=== PATIENT | male | born 2000 | race African-American/Black ===

== ENCOUNTER 2019-08-31 21:31 | Emergency (ER) | payer OTHER, SELFPAY ==
[2019-08-31 21:36] VITALS: BP 135/88; PULSE 131; RESP 18; TEMP 37.2; O2SAT 97
--- NOTE | 2019-08-31 22:07 | ED.PSYCH ---
HPI - Psych General Chief Complaint: Psychiatric Symptoms <Kash Lee MD - Last Filed: 09/04/19 18:51> Stated Complaint: SI <Kash Lee MD - Last Filed: 09/04/19 18:51> Time Seen by Provider: 08/31/19 21:56 <Kash Lee MD - Last Filed: 09/04/19 18:51> History of Present Illness HPI Narrative: Policed called to his house because he was found trying to hang himself. He admits to try to kill himself. It sounds as though this is not the first time. History limited by alcohol intoxication <Kash Lee MD - Last Filed: 09/04/19 18:51> Related Data Allergies/Adverse Reactions: Allergies Allergy/AdvReac Type Severity Reaction Status Date / Time SEASONAL ALLERGENS AdvReac Unknown UNKNOWN Uncoded 07/25/17 16:12 <Kash Lee MD - Last Filed: 09/04/19 18:51> Review of Systems Review of Systems: ROS unobtainable: Yes other (intoxication) <Kash Lee MD - Last Filed: 09/04/19 18:51> Psychiatric: Psychiatric: Reports suicidal ideation <Kash Lee MD - Last Filed: 09/04/19 18:51> Exam Const: General: healthy appearing, no acute distress and alert <Kash Lee MD - Last Filed: 09/04/19 18:51> Nutritional Appearance: well nourished <Kash Lee MD - Last Filed: 09/04/19 18:51> Orientation/consciousness: patient oriented x3 <Kash Lee MD - Last Filed: 09/04/19 18:51> HENMT: Head: normal to inspection <Kash Lee MD - Last Filed: 09/04/19 18:51> Eyes: Pupils: Equal, round and reactive pupils present <Kash Lee MD - Last Filed: 09/04/19 18:51> Resp: Effort & Inspection: normal respiratory effort <Kash Lee MD - Last Filed: 09/04/19 18:51> Auscultation: clear to auscultation bilaterally <Kash Lee MD - Last Filed: 09/04/19 18:51> Cardio: Rate: tachycardic <Kash Lee MD - Last Filed: 09/04/19 18:51> Rhythm: regular rhythm <Kash Lee MD - Last Filed: 09/04/19 18:51> Skin: General skin exam: normal color <Kash Lee MD - Last Filed: 09/04/19 18:51> Neuro: General: moves all extremities and no focal motor deficits <Kash Lee MD - Last Filed: 09/04/19 18:51> Speech: Abnormal speech present slurred <Kash Lee MD - Last Filed: 09/04/19 18:51> Extrem: General: normal to inspection <Kash Lee MD - Last Filed: 09/04/19 18:51> Psych: Thought content: Yes Suicidality present <Kash Lee MD - Last Filed: 09/04/19 18:51> Course Course Emergency Course: Care turned over to myself at shift change. Seen and evaluated myself agree with initial H&P patient does states that he has daily suicidal ideation Patient evaluated by Mallika from [facility]. It is felt that the patient does require inpatient treatment to she is filled out at this time and will see placement for patient Patient accepted at [facility] by Dr. Alvarez <Jenaro Conway DO - Last Filed: 09/01/19 15:54> Vital Signs Vital signs: Vital Signs Temperature 37.2 C 08/31/19 21:36 Pulse Rate 131 H 08/31/19 21:36 Respiratory Rate 18 08/31/19 21:36 Blood Pressure 135/88 08/31/19 21:36 Pulse Oximetry 97 08/31/19 21:36 Temperature 37.2 C 08/31/19 21:36 Pulse Rate 94 09/01/19 14:09 Respiratory Rate 18 09/01/19 14:09 Blood Pressure 118/60 09/01/19 14:09 Pulse Oximetry 99 09/01/19 14:09 <Kash Lee MD - Last Filed: 09/04/19 18:51> Vital Signs Temperature 37.2 C 08/31/19 21:36 Pulse Rate 131 H 08/31/19 21:36 Respiratory Rate 18 08/31/19 21:36 Blood Pressure 135/88 08/31/19 21:36 Pulse Oximetry 97 08/31/19 21:36 Temperature 37.2 C 08/31/19 21:36 Pulse Rate 94 09/01/19 14:09 Respiratory Rate 18 09/01/19 14:09 Blood Pressure 118/60 09/01/19 14:09 Pulse Oximetry 99 09/01/19 14:09 <Jenaro Conway, DO - Last Filed: 09/01/19 15:54>
[2019-08-31 22:08] LABS: Basophils Absolute Auto 0.1 K/mm3 (0.0-0.1); Eosinophils Absolute Auto 0.1 K/mm3 (0-0.3); Eosinophils Percent Auto 1.6 % (0-4.4); Hematocrit 47.8 % (42.0-52.0); Hemoglobin 16.7 g/dL (14.0-18.0); Immature Granulocyte Absolute 0.02 K/mm3 (0.00-0.031); Immature Granulocyte Percent A 0.2 % (0-0.5); Lymphocytes Absolute Auto 3.37 K/mm3 (0.9-3.2); Mean Corpuscular HGB Conc 34.9 g/dl (32-36); Mean Corpuscular Hemoglobin 31.5 pg (26-34); Mean Platelet Volume 11.3 fl (7.4-10.4); Monocytes Absolute Auto 0.6 K/mm3 (0.1-0.6); Monocytes Percent Auto 7.2 % (2.6-8.5); Neutrophils Absolute Auto 3.8 K/mm3 (1.3-6.7); Platelet Count Result 290 k/mm3 (150-375); Red Blood Count 5.31 M/mm3 (4.6-6.20); Red Cell Distribution Width 11.8 % (11.5-14.5)
[2019-08-31 22:21] LABS: Alanine Aminotransferase 16 U/L (4-50); Albumin Level 5.1 g/dL (3.5-5.1); Alkaline Phosphatase 57 U/L (38-126); Aspartate Amino Transferase 37 U/L (17-59); Bilirubin,Total 0.4 mg/dL (0.2-1.3); Blood Urea Nitrogen 10 mg/dL (9-20); Calcium 8.9 mg/dL (8.4-10.2); Carbon Dioxide 24 mmol/L (22-30); Chloride 104 mmol/L (98-107); Estimated Glomerular Filt Rate > 60; Glucose 99 mg/dL (75-110); Potassium 3.8 mmol/L (3.4-5.0); Sodium 141 mmol/L (137-145)
[2019-08-31 22:22] LABS: Ethanol 215 mg/dL (<10)
--- NOTE | 2019-08-31 22:44 | PC.NURSE ---
Patient stating I'm gonna leave, I don't want to be here so it's ok. Patient states he wants water to drink. Patient informed he needs to stay in to room and I will ask to doctor for some water. Patient states he will give a urine sample.
--- NOTE | 2019-08-31 22:52 | PC.NURSE ---
Patient repeatedly attempting to leave room, ED security called to room. Security speaking with patient.
--- NOTE | 2019-08-31 23:00 | PC.NURSE ---
2300 Assumed care of pt at this time. report from Ernestina, RN
[2019-08-31 23:01] LABS: Add Urine Microscopic? YES; Appearance Urine Clear (Clear); Bilirubin Urine Negative (Negative); Blood Urine 1+ (Negative); Color Urine Yellow (Yellow); Glucose Urine UA Negative (Negative); Ketones Urine Trace mg/dL (Negative); Leukocyte Esterase Ur Negative LEU/UL (Negative); Mucus Urine Rare /lpf; Nitrate Urine Negative (Negative); Protein Urine 1+ mg/dL (Negative); RBC Urine 0-2 /hpf (0-2); Specific Grav Ur 1.017 (1.001-1.035); Squamous Epithelial Cell Urine Rare /hpf (Few); Urobilinogen Urine Negative mg/dL (<2.0); WBC Urine 0-3 /hpf
--- NOTE | 2019-08-31 23:24 | PC.NURSE ---
Patient report given to BEKAH Pack.
[2019-08-31 23:28] LABS: Amphetamine Screen Urine Negative (Negative); Barbiturate Screen Urine Negative (Negative); Benzodiazepines Screen Urine Negative (Negative); Cannabinoid Screen Urine Negative (Negative); Cocaine Screen Urine Negative (Negative); Methadone Screen Urine Negative (Negative); Opiate Screen Urine Negative (Negative); Phencyclidine Screen Urine Negative (Negative)
--- NOTE | 2019-09-01 00:03 | PC.NURSE ---
Spoke with grandmother, Kim Garcia. She wanted the code to his phone so she could call his employer and let them know he is in the hospital. Told her he was resting/sleeping at this time and we did not want to disturb him. She agreed and will try another way to contact his employer.
[2019-09-01 00:15] VITALS: BP 117/64; PULSE 97; RESP 16; O2SAT 94
[2019-09-01 03:26] VITALS: BP 111/49; PULSE 86; RESP 18; O2SAT 95
--- NOTE | 2019-09-01 04:37 | PC.NURSE ---
spoke w/ pt's grandparent. updated patient of pt status.
[2019-09-01 05:38] VITALS: BP 114/58; PULSE 105; RESP 14; O2SAT 95
[2019-09-01 06:25] LABS: Ethanol 79 mg/dL (<10)
--- NOTE | 2019-09-01 06:32 | PC.NURSE ---
Spoke w/ Jacquelyn at crisis. Mallika does not get on shift until 0700 she will be here around 0800.
--- NOTE | 2019-09-01 06:33 | PC.NURSE ---
Pt moved to RM 15. Sitter at bedside
--- NOTE | 2019-09-01 07:27 | PC.NURSE ---
Sleeping on stretcher. Sitter at bedside. Awaiting crisis to evaluate.
--- NOTE | 2019-09-01 08:58 | PC.NURSE ---
Chart faxed to [facility]. Face sheet faxed to [facility].
--- NOTE | 2019-09-01 08:59 | PC.NURSE ---
Declined a meal at present.
--- NOTE | 2019-09-01 09:28 | PC.NURSE ---
Confirmed with [facility], they received faxed chart. [facility] called and does not have a bed available.
--- NOTE | 2019-09-01 10:39 | PC.NURSE ---
Additional forms faxed to [facility].
[2019-09-01] MEDS: NICOTINE (*PBKC) 21 MG PATCH 1 PATCH TRANSDERM (10:56)
--- NOTE | 2019-09-01 10:56 | PC.NURSE ---
Chart faxed to [facility].
[2019-09-01 14:09] VITALS: BP 118/60; PULSE 94; RESP 18; O2SAT 99
--- NOTE | 2019-09-01 15:53 | PC.NURSE ---
nurse to nurse report given to Laquita Latham RN at [facility]
== END 2019-09-01 15:58 ==
PROVIDERS: Emergency Medicine; Emergency Provider Emergency Medicine; PCP Family Medicine
DX: R45.851 Suicidal ideations (principal)
CPT/HCPCS: 36415; 80053; 80307; 81001; 84443; 85025; 99285; A9270

== ENCOUNTER 2020-01-27 07:44 | Emergency (ER) | payer OTHER, SELFPAY ==
[2020-01-27] VITALS (15 sets, daily range): BP systolic 103–146; BP diastolic 66–88; PULSE 76–99; RESP 16–18; TEMP 36.8; O2SAT 99–100
--- NOTE | ~2020-01-27 | CT_ITS ---
EXAMINATION: CT abdomen pelvis w con DATE: 01/27/2020 08:41 INDICATION: Right lower quadrant pain TECHNIQUE: Computed tomography (CT) of the abdomen and pelvis was performed with 100 cc Omnipaque 350 intravenous contrast. The dose-length product was 303.38 mGy-cm. Automated exposure control and iter ative reconstruction technique were employed. COMPARISON: None. FINDINGS: Lung bases are unremarkable. No significant pleural or pericardial effusion. Heart size nor mal. The liver, spleen, pancreas, and adrenal glands and kidneys are unremarkable. Gallbladder is present. The appendix is within normal limits. No periappendiceal inflammation. Trace free fluid in the pelvi s, nonspecific. Nonobstructive bowel gas pattern. No free air. Gallbladder is present. No acute osseous abnormality. IMPRESSION: 1. No acute abdominal abnormality. No findings to account for patient's symptoms. Reviewed, dictated and finalized at location B. IMPRESSION: 1. No acute abdominal abnormality. No findings to account for patient's symptom s.
--- NOTE | 2020-01-27 08:03 | ED.ABDPAIN ---
HPI - Abdominal Pain General Chief Complaint: Abdominal Pain Stated Complaint: abd pain, gastritis hx Time Seen by Provider: 01/27/20 07:49 History of Present Illness HPI narrative: Patient is a 19-year-old male who presents ER with abdominal pain. Symptoms began earlier this morning. Diffuse abdominal cramping that is sharp. Last for a few minutes at a time, able to go away briefly and return. No aggravating or alleviating factors that he is noted. Denies nausea/vomiting/diarrhea. No known sick contacts. Denies urinary symptoms. Reports pain refers into his back but has no overt back pain. Related Data Home Medications Medication Instructions Recorded Confirmed bupropion HCl PO DAILY 01/27/20 sertraline mg DAILY 01/27/20 Allergies Allergy/AdvReac Type Severity Reaction Status Date / Time No Known Allergies Allergy Verified 01/27/20 07:53 Review of Systems Review of Systems: All systems reviewed & are unremarkable except as noted in HPI and below Constitutional: Constitutional: Denies chills, Denies fever(s) and Denies weakness Gastrointestinal: Gastrointestinal: Reports abdominal pain, Denies diarrhea, Denies nausea and Denies vomiting Genitourinary: Genitourinary: Denies hematuria, Denies dysuria and Denies urinary frequency PMFSH Past Medical History Medical History (Updated 01/27/20 @ 09:40 by Jovon Mcallister MD) Healthy adult male Surgical History Surgical History (Updated 01/27/20 @ 08:10 by Jovon Mcallister MD) No history of previous surgery Social History Social History (Updated 01/27/20 @ 08:10 by Jovon Mcallister MD) Smoking status: Current every day smoker Alcohol use details: Occasional EtOH Exam Narrative: Exam Narrative: GENERAL: Well-appearing, well-nourished, and in no acute distress. HEAD: Normocephalic, atraumatic. CHEST: Clear to auscultation. No respiratory distress. HEART: Regular rate and rhythm. Normal peripheral pulses. ABDOMEN: Soft, mild tenderness right lower quadrant with guarding, additional mild tenderness right upper quadrant without guarding, nondistended, normal active bowel sounds. EXTREMITIES: Normal range of motion. No edema. SKIN: Warm, dry, no rash. NEURO: Alert and oriented x3. PSYCH: Normal mood and affect. Course Course Emergency Course: Unremarkable evaluation. Discharge home. Vital Signs Vital signs: Vital Signs Pulse Oximetry 99 01/27/20 07:50 Temperature 98.2 F 01/27/20 07:54 Pulse Rate 76 01/27/20 07:54 Respiratory Rate 18 01/27/20 07:54 Blood Pressure 103/73 01/27/20 08:01 Pulse Oximetry 99 01/27/20 08:01 MDM - Abdominal Pain Lab Data Result diagrams: 01/27/20 08:11 01/27/20 08:11 Labs: Lab Results 01/27/20 01/27/20 01/27/20 Range/Units 08:11 08:11 09:00 WBC 8.3 (4.5-10.0) K/mm3 RBC 4.78 (4.6-6.20) M/mm3 Hgb 15.3 (14.0-18.0) g/dL Hct 42.5 (42.0-52.0) % MCV 88.9 (80-100) fl MCH 32.0 (26-34) pg MCHC 36.0 (32-36) g/dl RDW 10.7 L (11.5-14.5) % Plt Count 228 (150-375) k/mm3 MPV 11.0 H (7.4-10.4) fl Immature Gran % (Auto) 0.5 (0-0.5) % Neut % (Auto) 75.8 H (45.5-73.1) % Lymph % (Auto) 14.6 L (18.3-44.2) % [place] % (Auto) 6.8 (2.6-8.5) % Eos % (Auto) 1.6 (0-4.4) % Baso % (Auto) 0.7 (0.2-1.2) % Lymph # (Auto) 1.21 (0.9-3.2) K/mm3 [place] # (Auto) 0.6 (0.1-0.6) K/mm3 Eos # (Auto) 0.1 (0-0.3) K/mm3 Baso # (Auto) 0.1 (0.0-0.1) K/mm3 Abs Immat Gran (auto) 0.04 H (0.00-0.031) K/mm3 Absolute Neuts (auto) 6.3 (1.3-6.7) K/mm3 Absolute Nucleated RBC 0.0 (0.0-0.012) K/mm3 Nucleated RBC % 0.0 (0.0-0.2) % Sodium 140 (137-145) mmol/L Potassium 3.7 (3.4-5.0) mmol/L Chloride 102 (98-107) mmol/L Carbon Dioxide 28 (22-30) mmol/L Anion Gap 10 (8-16) mmol/L BUN 16 (9-20) mg/dL Creatinine 1.20 (0.7-1.3) mg/dL Estim Creat
--- NOTE | 2020-01-27 08:15 | PC.NURSE ---
patient here with abdomen pain. see triage notes. alert. oriented. denies known fever at home. assessments documented.
[2020-01-27 08:17] LABS: Basophils Absolute Auto 0.1 K/mm3 (0.0-0.1); Basophils Percent Auto 0.7 % (0.2-1.2); Eosinophils Absolute Auto 0.1 K/mm3 (0-0.3); Eosinophils Percent Auto 1.6 % (0-4.4); Hematocrit 42.5 % (42.0-52.0); Hemoglobin 15.3 g/dL (14.0-18.0); Immature Granulocyte Absolute 0.04 K/mm3 (0.00-0.031); Immature Granulocyte Percent A 0.5 % (0-0.5); Lymphocytes Absolute Auto 1.21 K/mm3 (0.9-3.2); Lymphocytes Percent Auto 14.6 % (18.3-44.2); Mean Corpuscular Volume 88.9 fl (80-100); Monocytes Absolute Auto 0.6 K/mm3 (0.1-0.6); Monocytes Percent Auto 6.8 % (2.6-8.5); Neutrophils Absolute Auto 6.3 K/mm3 (1.3-6.7); Neutrophils Percent Auto 75.8 % (45.5-73.1); Platelet Count Result 228 k/mm3 (150-375); Red Blood Count 4.78 M/mm3 (4.6-6.20); Red Cell Distribution Width 10.7 % (11.5-14.5); White Blood Count 8.3 K/mm3 (4.5-10.0)
--- NOTE | 2020-01-27 08:19 | PC.NURSE ---
patient reminded that we will wait a urine specimen. states he does not need to void right now.
[2020-01-27 08:28] LABS: Alanine Aminotransferase 19 U/L (4-50); Albumin Level 4.7 g/dL (3.5-5.1); Alkaline Phosphatase 42 U/L (38-126); Anion Gap 10 mmol/L (8-16); Aspartate Amino Transferase 22 U/L (17-59); Bilirubin,Total 0.8 mg/dL (0.2-1.3); Blood Urea Nitrogen 16 mg/dL (9-20); Calcium 9.4 mg/dL (8.4-10.2); Carbon Dioxide 28 mmol/L (22-30); Chloride 102 mmol/L (98-107); Estimated CRCL calculation 79 ml/min; Estimated Glomerular Filt Rate > 60; Glucose 96 mg/dL (75-110); Lipase 20 U/L (23-300); Potassium 3.7 mmol/L (3.4-5.0); Sodium 140 mmol/L (137-145)
--- NOTE | 2020-01-27 08:48 | PC.NURSE ---
back from CT.
--- NOTE | 2020-01-27 08:54 | PC.NURSE ---
patient assisted to get out of bed. given urinal.
--- NOTE | 2020-01-27 09:01 | PC.NURSE ---
urine specimen collected.
[2020-01-27 09:10] LABS: Add Urine Microscopic? NO; Appearance Urine Clear (Clear); Bacteria Urine Trace /hpf; Bilirubin Urine Negative (Negative); Blood Urine Negative (Negative); Color Urine Yellow (Yellow); Glucose Urine UA Negative (Negative); Ketones Urine Negative (Negative); Leukocyte Esterase Ur Negative LEU/UL (Negative); Mucus Urine Rare /lpf; Nitrate Urine Negative (Negative); Protein Urine Negative (Negative); RBC Urine 0-2 /hpf (0-2); Urobilinogen Urine Negative mg/dL (<2.0); WBC Urine 0-3 /hpf
[2020-01-27 09:12] LABS: Specific Grav Ur 1.049 (1.001-1.035)
== END 2020-01-27 10:00 | disposition home or self-care (01) ==
PROVIDERS: Emergency Provider Emergency Medicine; PCP Family Medicine
DX: R10.9 Unspecified abdominal pain (principal); F17.200 Nicotine dependence, unspecified, uncomplicated
CPT/HCPCS: 36415; 74177; 80053; 81003; 83690; 85025; 99284; Q9967

== ENCOUNTER 2020-06-23 02:05 | Emergency (ER) | payer OTHER, SELFPAY ==
[2020-06-23 02:09] VITALS: BP 134/84; PULSE 95; RESP 16; TEMP 37; O2SAT 99
--- NOTE | 2020-06-23 02:18 | ECG_ITS ---
Measurements Intervals [place] Rate: 80 P: 50 UT: 174 QRS: -15 QRSD: 100 T: 28 QT: 369 QTc: 426 Interpretive Statements SINUS RHYTHM WITH SINUS ARRHYTHMIA DELAYED PRECORDIAL R/S TRANSITION BORDERLINE T WAVE ABNORMALITY- LATERAL LEADS BASELINE WANDER- V4-V6 BORDERLINE ECG Electronically Signed On 06-23-2020 7:19:39 CDT by Hernandez Torres D.O.
[2020-06-23 02:42] LABS: Basophils Absolute Auto 0.1 K/mm3 (0.0-0.1); Basophils Percent Auto 0.7 % (0.2-1.2); Eosinophils Absolute Auto 0.1 K/mm3 (0-0.3); Hematocrit 43.9 % (42.0-52.0); Hemoglobin 15.7 g/dL (14.0-18.0); Immature Granulocyte Absolute 0.03 K/mm3 (0.00-0.031); Immature Granulocyte Percent A 0.4 % (0-0.5); Lymphocytes Absolute Auto 3.32 K/mm3 (0.9-3.2); Lymphocytes Percent Auto 46.7 % (18.3-44.2); Mean Corpuscular HGB Conc 35.8 g/dl (32-36); Mean Corpuscular Hemoglobin 31.5 pg (26-34); Monocytes Absolute Auto 0.4 K/mm3 (0.1-0.6); Monocytes Percent Auto 5.5 % (2.6-8.5); Neutrophils Absolute Auto 3.3 K/mm3 (1.3-6.7); Neutrophils Percent Auto 45.7 % (45.5-73.1); Platelet Count Result 287 k/mm3 (150-375); Red Blood Count 4.99 M/mm3 (4.6-6.20); White Blood Count 7.1 K/mm3 (4.5-10.0)
--- NOTE | 2020-06-23 02:50 | ED.GENADULT ---
HPI - General Adult General Chief complaint: Psychiatric Symptoms Stated complaint: break down Time Seen by Provider: 06/23/20 02:07 History of Present Illness HPI narrative: Patient is a 20-year-old gentleman who presents the emergency department with chief complaint of anxiety and suicidal ideation. Patient states that he has been under stress lately because he ran out of his Wellbutrin and has been unable to get his doctor to refill it. Patient states that he is becoming more more stressed and reports that he is having thoughts of harming himself. Patient states that he does not have a defined plan and states that these feelings come and go. The patient reports that tonight he was drinking and started having some of these thoughts again. The patient states at this time he is not feeling them as much as he was. The patient reports that he really just needs his Wellbutrin Related Data Home Medications Medication Instructions Recorded Confirmed bupropion HCl PO DAILY 01/27/20 sertraline mg DAILY 01/27/20 Allergies Allergy/AdvReac Type Severity Reaction Status Date / Time No Known Allergies Allergy Verified 01/27/20 07:53 Review of Systems Review of Systems: Narrative: A 10 system review of systems was completed on the patient and is negative except for what is stated in the HPI. Nursing and ancillary documentation was reviewed. PMFSH Past Medical History Medical History Healthy adult male Surgical History Surgical History No history of previous surgery Social History Social History Smoking status: Current every day smoker Exam Narrative: Exam Narrative: GENERAL: Well-appearing, well-nourished, and in no acute distress. HEAD: Normocephalic, atraumatic. EYES: PERRLA and EOMI. ENT: Nares clear, no rhinorrhea or epistaxis. Mucous membranes moist. NECK: Supple. CHEST: Clear to auscultation. No respiratory distress. HEART: Regular rate and rhythm. No murmur heard. Normal peripheral pulses. ABDOMEN: Soft, nontender, nondistended, normal active bowel sounds. EXTREMITIES: Normal range of motion. No edema. SKIN: Warm, dry, no rash. NEURO: No focal deficits. Alert and oriented x3. PSYCH: Normal mood and affect. Course Vital Signs Vital signs: Vital Signs Temperature 37.0 C 06/23/20 02:09 Pulse Rate 95 06/23/20 02:09 Respiratory Rate 16 06/23/20 02:09 Blood Pressure 134/84 06/23/20 02:09 Pulse Oximetry 99 06/23/20 02:09 Temperature 37.0 C 06/23/20 02:09 Pulse Rate 95 06/23/20 02:09 Respiratory Rate 16 06/23/20 02:09 Blood Pressure 134/84 06/23/20 02:09 Pulse Oximetry 99 06/23/20 02:09 Medical Decision Making Vital Signs Vital Signs: Vital Signs Temperature 37.0 C 06/23/20 02:09 Pulse Rate 95 06/23/20 02:09 Respiratory Rate 16 06/23/20 02:09 Blood Pressure 134/84 06/23/20 02:09 Pulse Oximetry 99 06/23/20 02:09 Temperature 37.0 C 06/23/20 02:09 Pulse Rate 95 06/23/20 02:09 Respiratory Rate 16 06/23/20 02:09 Blood Pressure 134/84 06/23/20 02:09 Pulse Oximetry 99 06/23/20 02:09 Lab Data Result diagrams: 06/23/20 02:30 06/23/20 02:30 Labs: Lab Results 06/23/20 06/23/20 06/23/20 Range/Units 02:30 02:30 02:30 WBC 7.1 (4.5-10.0) K/mm3 RBC 4.99 (4.6-6.20) M/mm3 Hgb 15.7 (14.0-18.0) g/dL Hct 43.9 (42.0-52.0) % MCV 88.0 (80-100) fl MCH 31.5 (26-34) pg MCHC 35.8 (32-36) g/dl RDW 11.0 L (11.5-14.5) % Plt Count 287 (150-375) k/mm3 MPV 11.0 H (7.4-10.4) fl Immature Gran % (Auto) 0.4 (0-0.5) % Neut % (Auto) 45.7 (45.5-73.1) % Lymph % (Auto) 46.7 H (18.3-44.2) % [place] % (Auto) 5.5 (2.6-8.5) % Eos % (Auto) 1.0 (0-4.4) % Baso % (Au
[2020-06-23 02:53] LABS: Alanine Aminotransferase 28 U/L (4-50); Albumin Level 4.9 g/dL (3.5-5.1); Alkaline Phosphatase 41 U/L (38-126); Anion Gap 13 mmol/L (8-16); Aspartate Amino Transferase 26 U/L (17-59); Bilirubin,Total 0.2 mg/dL (0.2-1.3); Blood Urea Nitrogen 10 mg/dL (9-20); Carbon Dioxide 26 mmol/L (22-30); Chloride 105 mmol/L (98-107); Estimated CRCL calculation 85 ml/min; Estimated Glomerular Filt Rate > 60; Glucose 99 mg/dL (75-110); Potassium 3.7 mmol/L (3.4-5.0); Sodium 144 mmol/L (137-145)
[2020-06-23 03:04] LABS: Acetaminophen < 10 ug/mL (10-30); Ethanol 171 mg/dL (<10); Salicylate < 1.0 mg/dL (2-20)
[2020-06-23 03:07] LABS: Amphetamine Screen Urine Negative (Negative); Barbiturate Screen Urine Negative (Negative); Benzodiazepines Screen Urine Negative (Negative); Cannabinoid Screen Urine Negative (Negative); Cocaine Screen Urine Negative (Negative); Methadone Screen Urine Negative (Negative); Opiate Screen Urine Negative (Negative); Phencyclidine Screen Urine Negative (Negative)
[2020-06-23 03:16] LABS: Add Urine Microscopic? NO; Appearance Urine Clear (Clear); Bilirubin Urine Negative (Negative); Blood Urine Negative (Negative); Color Urine Yellow (Yellow); Glucose Urine UA Negative (Negative); Ketones Urine Negative (Negative); Leukocyte Esterase Ur Negative LEU/UL (Negative); Nitrate Urine Negative (Negative); Protein Urine Negative (Negative); Specific Grav Ur 1.015 (1.001-1.035); Urobilinogen Urine Negative mg/dL (<2.0)
[2020-06-23 06:58] LABS: Ethanol 115 mg/dL (<10)
--- NOTE | 2020-06-23 07:32 | PC.NURSE ---
Assumed care of pt, pt is resting on stretcher - alert to verbal stimuli. Discussed POC. Pt denies SI at this time. Sitter remains at bedside. Breakfast tray ordered for pt.
[2020-06-23 08:06] VITALS: BP 98/48; PULSE 82; RESP 17; O2SAT 97
--- NOTE | 2020-06-23 08:26 | PC.NURSE ---
Per Low Risk reassessment evaluation on Edgar scale, discussed with dry charge process attendant Kiah and had sitter removed from bedside. Pt remains calm, resting on stretcher, lights dimmed. Discussed POC.
[2020-06-23 09:14] LABS: Ethanol 77 mg/dL (<10)
--- NOTE | 2020-06-23 09:25 | PC.NURSE ---
Per Dr Mcallister, pt is medically cleared at this time. Crisis was contacted, spoke to Mallika - will be out shortly for pt eval.
--- NOTE | 2020-06-23 10:42 | PC.NURSE ---
Called and spoke to Kim Garcia (pt grandmother) [phone] and gave update on pt status.
[2020-06-23 11:42] VITALS: BP 131/80; PULSE 76; RESP 16; O2SAT 100
[2020-06-23 12:28] VITALS: BP 131/80; PULSE 76; RESP 15; O2SAT 100
== END 2020-06-23 12:29 | disposition home or self-care (01) ==
PROVIDERS: Emergency Medicine; Emergency Provider Emergency Medicine; PCP Family Medicine
DX: F32.9 Major depressive disorder, single episode, unspecified (principal); F10.129 Alcohol abuse with intoxication, unspecified; Y90.6 Blood alcohol level of 120-199 mg/100 ml; R94.31 Abnormal electrocardiogram [ECG] [EKG]
CPT/HCPCS: 36415; 80053; 80307; 81003; 84443; 85025; 93005; 99284

== ENCOUNTER 2022-11-14 13:41 | Emergency (ER) | payer OTHER, SELFPAY ==
[2022-11-14 13:42] VITALS: BP 142/87; PULSE 82; RESP 16; TEMP 36.8; O2SAT 99
--- NOTE | 2022-11-14 14:38 | ED.DENTAL ---
HPI - Dental/Oral General Chief complaint: Dental/Oral Stated complaint: L jaw pain, swollen lymphnodes Time Seen by Provider: 11/14/22 14:13 Source: patient Mode of arrival: ambulatory Limitations: no limitations History of Present Illness HPI Narrative: Patient is a 22-year-old male who presents ED with report of left lower posterior dental and jaw pain. Patient reports having intermittent pain over the last 1 week. He states the pain feels to be where his left lower wisdom tooth is. He has noticed some gum swelling in the region and swelling to his left-sided outer jaw. Denies any drainage from the tooth. He has been taking ibuprofen for the pain without much relief. He also feels like one of his lymph nodes on his left sided neck is enlarged. Denies any fever, difficulty swallowing or breathing, vomiting. Patient has not tried to get into see a dentist yet. Related Data Home Medications Medication Instructions Recorded Confirmed bupropion HCl 100 mg tablet PO DAILY 01/27/20 sertraline 50 mg tablet mg DAILY 01/27/20 Allergies Allergy/AdvReac Type Severity Reaction Status Date / Time No Known Allergies Allergy Verified 11/14/22 13:55 Review of Systems Review of Systems: CONSTITUTIONAL: Denies fever, chills, or sweats. ENT: See HPI. CARDIOVASCULAR: Denies chest pain. RESPIRATORY: Denies dyspnea. GASTROINTESTINAL: Denies abdominal pain, nausea, vomiting. All systems reviewed & are unremarkable except as noted in HPI and below PMFSH Past Medical History Medical History Healthy adult male Surgical History Surgical History No history of previous surgery Social History Social History Smoking status: Current every day smoker Alcohol use details: Occasional EtOH Exam Narrative: GENERAL: Well appearing, well-nourished, non-toxic, in no acute distress. HEAD: Normocephalic, atraumatic. ENT: Mucous membranes moist. Lip ring to left lower lip. No stridor or trismus. Left lower posterior molar with surrounding gum inflammation, erythema, tenderness - reproducing reported discomfort. No focal abscess or fluctuance. No significant posterior pharynx erythema. Uvula midline. No appreciable submandibular swelling. No swelling or tenderness noted to palate. NECK: Supple. No significant palpable anterior cervical lymphadenopathy, no masses. RESPIRATORY: Airway patent, respirations nonlabored. Clear to auscultation bilaterally, no rales, rhonchi, wheezing. CARDIOVASCULAR: Regular rate and rhythm without murmurs, rubs, or gallops. Radial pulses 2+ and equal bilaterally. MUSCULOSKELETAL: Moves all extremities. Strength/ROM intact without gross deformities. SKIN: Warm, dry, normal color. No rashes. NEURO: A&O X3. Speech clear. Cranial nerves II-XII grossly intact. Steady gait. No ataxic movements. PSYCHIATRIC: Appropriate mood and affect. Normal interaction. Course Vital Signs Vital signs: Vital Signs Temperature 98.2 F 11/14/22 13:42 Pulse Rate 82 11/14/22 13:42 Respiratory Rate 16 11/14/22 13:42 Blood Pressure 142/87 H 11/14/22 13:42 Pulse Oximetry 99 11/14/22 13:42 Oxygen Delivery Room Air 11/14/22 13:42 Temperature 98.2 F 11/14/22 13:42 Pulse Rate 82 11/14/22 13:42 Respiratory Rate 16 11/14/22 13:42 Blood Pressure 142/87 H 11/14/22 13:42 Pulse Oximetry 99 11/14/22 13:42 Oxygen Delivery Room Air 11/14/22 13:42 MDM - Dental/Oral MDM Narrative Medical decision making narrative: Patient's pain is consistent with dental/gum infection. There are no focal signs of space-occupying abscess. The patient is controlling secretions well without signs of airway compromise. No stridor or trismus. No evidence for parotiditis, Andrzej's angina. Patient is felt reasonable for outpa
[2022-11-14] MEDS: AMOXICILLIN/CLAVULANATE K 875-125 MG TAB 1 TABLET PO (14:45)
[2022-11-14] MEDS: ACETAMINOPHEN 500 MG TABLET 1000 MG PO (14:45)
== END 2022-11-14 15:16 | disposition home or self-care (01) ==
PROVIDERS: Emergency Provider Physician Assistant
DX: K04.7 Periapical abscess without sinus (principal); F17.200 Nicotine dependence, unspecified, uncomplicated
CPT/HCPCS: 99283; A9270

== ENCOUNTER 2023-04-23 04:23 | Emergency (ER) | payer OTHER, SELFPAY ==
--- NOTE | ~2023-04-23 | XR_ITS ---
Portable chest x-ray Comparison: 09/26/2018 Clinical History: Chest pain Findings: Lungs are clear, without focal consolidation or pleural effusion. Cardiomediastinal silho uette is stable. Bones and soft tissues are unremarkable. Impression: Normal chest. Reviewed, dictated and finalized at [facility]. ON SITE Impression: Normal chest.
[2023-04-23 04:39] VITALS: BP 139/92; PULSE 61; RESP 19; TEMP 36.8; O2SAT 100
[2023-04-23 04:41] VITALS: PULSE 64
--- NOTE | 2023-04-23 05:01 | ECG_ITS ---
Measurements Intervals [place] Rate: 65 P: 38 TX: 181 QRS: -4 QRSD: 105 T: 29 QT: 376 QTc: 393 Interpretive Statements SINUS RHYTHM NONSPECIFIC T-WAVE ABNORMALITY- ANTEROLATERAL LEADS BASELINE ARTIFACT- I, II, III, AVL, AVF, V3, V6 BORDERLINE ECG COMPARED TO ECG 06/23/2020 02:40:59 NO SIGNIFICANT CHANGES Electronically Signed On 04-23-2023 6:41:59 [employer] by Hernandez Torres D.O.
[2023-04-23] MEDS: MAG HYDROX/AL HYDROX/SIMETH 30 ML UDC PO (05:12)
[2023-04-23] MEDS: FAMOTIDINE 20 MG TABLET PO (05:12)
[2023-04-23 05:30] VITALS: BP 134/83; PULSE 62; RESP 18; O2SAT 98
--- NOTE | 2023-04-23 05:33 | ED.GENADULT ---
HPI - General Adult General Chief complaint: Unspecified Stated complaint: Chest pain Time Seen by Provider: 04/23/23 04:28 History of Present Illness HPI narrative: this is a 23-year-old male with history of gastritis and anxiety presenting with chest pain. Patient says that for the last 20 every night when he goes to bed he developed a pain the left side his chest. the pain and actually resolved and has no pain during the day. He is currently asymptomatic. He noted that went for symptoms associated with significant anxiety. Now he feels he becomes anxious when the pain starts because he feels like he may not be able to sleep. Patient started a new job exactly 1 week ago. Patient denies fever chills URI symptoms Related Data Home Medications Medication Instructions Recorded Confirmed bupropion HCl 100 mg tablet PO DAILY 01/27/20 sertraline 50 mg tablet mg DAILY 01/27/20 Allergies Allergy/AdvReac Type Severity Reaction Status Date / Time No Known Allergies Allergy Verified 11/14/22 13:55 [facility] Past Medical History Medical History Healthy adult male Surgical History Surgical History No history of previous surgery Social History Social History Smoking status: Current every day smoker Alcohol use details: Occasional EtOH Exam Narrative: APPEARANCE: No apparent distress. Head: atraumatic. EYES: EOMI, NOSE: Atraumatic NECK: Trachea midline RESPIRATORY: No increased rate of breathing Clear to auscultation CARDIOVASCULAR: RRR, no reproducible chest tenderness ABDOMINAL: no epigastric tenderness guarding or rebound. MUSCULOSKELETAl: No obvious deformities NEURO: Alert. Moving 4/4 extremities SKIN:: Warm, dry. Normal color PSYCHIATRIC: Normal affect Course Vital Signs Vital signs: Vital Signs Temperature 98.3 F 04/23/23 04:39 Pulse Rate 61 04/23/23 04:39 Respiratory Rate 19 04/23/23 04:39 Blood Pressure 139/92 H 04/23/23 04:39 Pulse Oximetry 100 04/23/23 04:39 Oxygen Delivery Room Air 04/23/23 04:39 Temperature 98.3 F 04/23/23 04:39 Pulse Rate 62 04/23/23 05:30 Respiratory Rate 18 04/23/23 05:30 Blood Pressure 134/83 04/23/23 05:30 Pulse Oximetry 98 04/23/23 05:30 Oxygen Delivery Room Air 04/23/23 04:39 Medical Decision Making MDM Narrative Medical decision making narrative: -Course: 23-year-old male presenting with chest pain that only occurs at night it is associated with anxiety. He has a history of gastritis and anxiety but is currently not taking any medications for either. chest x-ray and EKG were obtained which were normal. Physical exam is unremarkable with a benign abdominal exam, clear lung sounds and he is currently asymptomatic stable vital signs. After discussing gastritis/ GERD and anxiety the patient would like to trial a course of Pepcid and follow up with his primary care physician for further management this issue. 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 -RX: Pepcid Vital Signs Vital Signs: Vital Signs Temper
== END 2023-04-23 05:51 | disposition home or self-care (01) ==
PROVIDERS: Emergency Provider Emergency Medicine
DX: K21.9 Gastro-esophageal reflux disease without esophagitis (principal); F17.210 Nicotine dependence, cigarettes, uncomplicated; F41.9 Anxiety disorder, unspecified
CPT/HCPCS: 71045; 93005; 99284; A9270